=== PATIENT | female | born 1980 | race American Indian/Alaskan Native ===

== ENCOUNTER 2017-01-12 09:13 | Emergency (ER) | payer SELFPAY ==
[2017-01-12 09:22] VITALS: BP 140/78
--- NOTE | 2017-01-12 12:07 | Emergency Department Report ---
ED Rash HPI - HPI Chief Complaint: Skin Rash Stated Complaint: RASH ENTIRE BODY Time Seen by Provider: 01/12/17 12:02 Duration: 2 Days Location: Head, Neck, Chest, Back, Abdomen, Upper Extremities Rash Symptoms: Yes Itching, Yes Malaise, No Facial Swelling, No Tongue/Oral Swelling, No Breathing Difficulties, No Choking Sensation, No Wheezing/Dyspnea, No Peeling, No Blistering, No Fever, No Lightheaded, No Myalgias Severity: moderate Other History: 36-year-old -[place] female comes in for complaint of rash all over that itches and stallworth for 2 days. Patient denies any new visual or change in body wash laundry detergent perfumes nuclear close new pets. She states she's been doing home remedies without improvement. She denies any sore throat denies any fever no redness noted to the rash. Other family members with this rash. ED Review of Systems ROS: Stated complaint: RASH ENTIRE BODY Other details as noted in HPI Constitutional: denies: chills, fever ENT: denies: ear pain, throat pain Respiratory: denies: cough, shortness of breath, wheezing Skin: rash ED Past Medical Hx - Past Medical History Additional medical history: anemia. ECZEMA - Surgical History Hx Cholecystectomy: Yes Additional Surgical History: left wrist surgery - Social History Smoking Status: Current Every Day Smoker Substance Use Type: None - Medications Home Medications: Home Medications Medication Instructions Recorded Confirmed Last Taken Type Cetirizine HCl [ZyrTEC] 10 mg PO QDAY #30 capsule 01/12/17 Unknown Rx Rash Exam - Exam General: Vital signs noted. No distress. Alert and acting appropriately. HEENT: No Periorbital Edema, No Conjuctival Injection, No Perioral Edema, No Tongue Edema, No Uvular Edema, No Compromised Airway, No Drooling Lungs: Yes Good Air Exchange, No Wheezes, No Ronchi, No Stridor, No Cough, No Labored Respirations, No Retractions, No Use of Accessory Muscles, No Other Abnormal Lung Sounds Heart: Yes Regular, No Murmur Skin: Yes Maculopapular Rash (scaly lesions), No Urticarial Rash, No Morbilliform rash, No Bulla(e), No Excoriations, No Weeping, No Tenderness, No Erythema, No Edema, No Encrustations, No Other Other: Positive: Abdomen Normal, Neurologic Normal, Musculoskeletal Normal ED Course Vital Signs 01/12/17 09:14 Temperature 98.4 F Pulse Rate 87 Respiratory 18 Rate Blood Pressure 140/78 O2 Sat by Pulse 99 Oximetry ED Medical Decision Making - Medical Decision Making Patient's been evaluated by this provider in fast track discussed with patient this 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 Discussed with patient becoming this can linger for 6-8 weeks. Discussed the patient treatment is very minimal such as antihistamines such as Claritin and Benadryl chlorpheniramine. Discussed with her that she needs to take cool but warm baths. Or showers not to have it too hot. Discussed the patient's orourke verbalized understanding n light helps with it but avoid direct sun secondary concern of sunburn. Critical care attestation.: If time is entered above; I have spent that time in minutes in the direct care of this critically ill patient, excluding procedure time. ED Disposition Clinical Impression: Pityriasis rosea Disposition: DISCHARGED TO HOME OR SELFCARE Is pt being admited?: No Does the pt Need Aspirin: No Condition: Stable Instructions: Pityriasis rosea (ED) Additional Instructions: Please take the Zyrtec daily. He can take Benadryl at night if the itchiness gets worse. Understanding of this rash, last up to 6-8 weeks. He can take lukewarm baths or showers. Avoid very hot baths. He can take baths with oatmeal bath for itchiness. Sunlight helps with the rash be caution too much sun for sunburn. Follow-up with your primary care provider for further evaluation. Prescriptions: Cetirizine HCl [ZyrTEC] 10 mg PO QDAY #30 capsule Referrals: PRIMARY CARE, [Primary Care Provider] - 3-5 Days Forms: Work/School Release Form(ED)
== END 2017-01-12 12:29 | disposition home or self-care (01) ==
LOC: ED 09:13
DX: L42 Pityriasis rosea (principal); D64.9 Anemia, unspecified; F17.200 Nicotine dependence, unspecified, uncomplicated
CPT/HCPCS: 99282